=== PATIENT | male | born 1985 | race Caucasian/White ===

== ENCOUNTER 2019-12-31 23:35 | Emergency (ER) | payer SELFPAY ==
[~2019-12-31] VITALS: Ht 180.3 cm; Wt 68.0 kg
--- OUTSIDE RECORDS SUMMARY | 2019-12-31 23:37 | XMS REPORT ---
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 Unavailable Unavailable JOHNNY GUARDADO M.D. Unavailable Unavailable Problems Condition Name Condition Details Condition Category Status Onset Date Resolution Date Last Treatment Date Treating Clinician Comments History of Anxiety History of Anxiety Problem Resolved Skin plaque Skin plaque Problem Active History of Alcohol abuse History of Alcohol abuse Problem Resolved Tobacco abuse Tobacco abuse Problem Active Mixed hyperlipidemia Mixed hyperlipidemia Problem Active Elevated transaminase level Elevated transaminase level Problem Active Rash and nonspecific skin eruption Rash and nonspecific skin eru ption Problem Active Screening for STD (sexually transmitted disease) Scree jasmina for STD (sexually transmitted disease) Problem Active Erectile dysfunction Erectile dysfunction Problem Active Blood pressure elevated without history of HTN Blood p ressure elevated without history of HTN Problem Active Vaccination refused by patient Vaccination refused by patient Problem Active Allergies, Adverse Reactions, Alerts Allergy Name Allergy Type Status Severity Reaction(s) Onset Date Inacti ve Date Treating Clinician Comments sertraline propensity to adverse reactions to drug Active Sexual dysfunction Medications Ordered Medication Name Filled Medication Name Start Date Stop Da te Current Medication? Ordering Clinician Indication Dosage Frequency Signature (SIG) Comments Components Sildenafil Citrate 100 MG Oral Tablet Sildenafil Citrate 100 MG Oral Tablet 2017-12-03 00:00:00 Yes ALYSSA Paula TAKE ONE TABLET BY MOUTH ONE HOUR PRIOR TO SEXUAL ACTIVITY; DO NOT EXCEED 1 DOSE PER 24 HOURS Clobetasol Propionate 0.05 % External Ointment Clobeta devora Propionate 0.05 % External Ointment 2017-11-13 00:00:00 Yes JOHNNY GUARDADO M.D. APPLY AND GENTLY MASSAGE INTO AFFECTED AREA(S) TWICE DAILY. Avoid face, groin, armpits. [employer] $0 Co-Pay Program Triamcinolone Acetonide 0.5 % External Ointment Triamc inolone Acetonide 0.5 % External Ointment 2017-11-13 00:00:00 Yes JOHNNY GUARDADO M.D. Apply small amount twice daily to red, raised, itchy areas; avoid face, folds of groin, folds of armpits. HEB $10 Formulary. Vital Signs Vital Name Observation Time Observation Value Comments BP Systolic 2019-03-22 10:50:00 132 mm[Hg] Location: [facility]; Position: Sitting BP Diastolic 2019-03-22 10:50:00 79 mm[Hg] Location: [facility]; Position: Sitting Height 2019-03-22 10:50:00 71 [in_us] Weight 2019-03-22 10:50:00 193.3125 [lb_av] Temperature 2019-03-22 10:50:00 98.6 [degF] Method: Temp oral Heart Rate 2019-03-22 10:50:00 85 /min Respiration Rate 2019-03-22 10:50:00 16 /min BP Systolic 2017-12-03 10:09:00 129 mm[Hg] Location: [facility]; Position: Sitting BP Diastolic 2017-12-03 10:09:00 86 mm[Hg] Location: [facility]; Position: Sitting Height 2017-12-03 10:09:00 71 [in_us] Weight 2017-12-03 10:09:00 204.5 [lb_av] Temperature 2017-12-03 10:09:00 97.9 [degF] Method: Temp oral Respiration Rate 2017-12-03 10:09:00 16 /min Heart Rate 2017-12-03 10:09:00 66 /min BP Systolic 2017-11-13 14:05:00 122 mm[Hg] Location: [facility]; Position: Sitting BP Diastolic 2017-11-13 14:05:00 72 mm[Hg] Location: [facility]; Position: Sitting Height 2017-11-13 14:05:00 71 [in_us] Weight 2017-11-13 14:05:00 205 [lb_av] Heart Rate 2017-11-13 14:05:00 75 /min BP Systolic 2017-10-16 10:22:00 129 mm[Hg] Location: [facility]; Position: Sitting BP Diastolic 2017-10-16 10:22:00 81 mm[Hg] Location: [facility]; Position: Sitting Height 2017-10-16 10:22:00 71 [in_us] Weight 2017-10-16 10:22:00 204 [lb_av] Temperature 2017-10-16 10:22:00 97.8 [degF] Method: Temp oral Respiration Rate 2017-10-16 10:22:00 16 /min Heart Rate 2017-10-16 10:22:00 63 /min BP Systolic 2017-10-09 11:24:00 113 mm[Hg] Location: [facility]; Position: Sitting BP Diastolic 2017-10-09 11:24:00 67 mm[Hg] Location: [facility]; Position: Sitting Height 2017-10-09 11:24:00 71 [in_us] Weight 2017-10-09 11:24:00 202.4375 [lb_av] Temperature 2017-10-09 11:24:00 98.5 [degF] Method: Temp oral Heart Rate 2017-10-09 11:24:00 77 /min Location: R Radial; Respiration Rate 2017-10-09 11:24:00 18 /min Quality: No rmal Procedures and Interventions Procedure Date / Time Performed Performing Clinici an [QLH] CBC (INCLUDES DIFF/PLT) 2019-03-22 00:00:00 [QLH] CMP W/EGFR 2019-03-22 00:00:00 [QLH] LIPID PANEL 2019-03-22 00:00:00 [QLH] TSH, 3RD GENERATION W/REFLEX TO FT4 2019-03-22 00:00:0 0 [QLH] URINALYSIS, COMPLETE W/REFLEX TO CULTURE 2019-03-22 00 :00:00 [QH] HIV AB, HIV 1/2, EIA, WITH REFLEXES 2019-03-22 00:00:00 [QL] RPR (DX) W/REFL TITER AND CONFIRMATORY TESTING 00:00:00 [QLH] HEPATITIS PANEL 2019-03-22 00:00:00 [Q] CHLAMYDIA/N. GONORRHOEAE DNA, SDA 2019-03-22 00:00:00 [QLH] TESTOSTERONE, FREE AND TOTAL, LC/MS/MS 2017-12-03 00:0 0:00 [QH] SEX HORMONE BINDING GLOBULIN 2017-12-03 00:00:00 [QLH] PROLACTIN 2017-12-03 00:00:00 [QLH] CBC (INCLUDES DIFF/PLT) 2017-11-27 00:00:00 [QLH] CMP W/EGFR 2017-11-27 00:00:00 [QLH] JUAN JOSÉ PANEL, COMPREHENSIVE 2017-11-27 00:00:00 [Q] DNA (DS) ANTIBODY, CRITHIDIA IFA W/REFLEX TO TITER 11-27 00:00:00 [QLH] SJOGRENS ANTIBODIES (SS-A,SS-B) 2017-11-27 00:00:00 [H] Culture: Tissue Quant w/Gram Stain 2017-11-13 00:00:00 [LH] AFB Culture and Smear,Broth 2017-11-13 00:00:00 [QH] CULTURE, FUNGUS W/SMEAR NOT HAIR, SKIN, BLOOD 2017-10-29 6 00:00:00 [QLH] CBC (INCLUDES DIFF/PLT) 2017-10-09 00:00:00 [QLH] CMP W/EGFR 2017-10-09 00:00:00 [QLH] FOLATE, SERUM 2017-10-09 00:00:00 [QLH] LIPID PANEL 2017-10-09 00:00:00 [QLH] TSH, 3RD GENERATION W/REFLEX TO FT4 2017-10-09 00:00:0 0 [QLH] VITAMIN B12 2017-10-09 00:00:00 [QLH] VITAMIN B1, WHOLE BLOOD 2017-10-09 00:00:00 History of Vasectomy Encounters Start Date/Time End Date/Time [facility] ID 2019-03-22 10:45:00 2019-03-22 10:45:00 Appointment; ADELA MANCUSO P.A. SPOONER, JOSEPH, P.A. [facility] [place] [id number] 2017-12-25 14:30:00 2017-12-25 14:30:00 Appointment; ADELA MANCUSO P.A. SPOONER, JOSEPH, P.A. [facility] [id number] 2017-12-03 10:00:00 2017-12-03 10:00:00 Appointment; ADELA MANCUSO P.A. SPOONER, JOSEPH, P.A. [facility] [id number] 2017-11-27 15:15:00 2017-11-27 15:15:00 Appointment; DELVIS GUARDADO M.D. KOSHELEV, MISHA[facility] [address] [id number] 2017-11-13 13:45:00 2017-11-13 13:45:00 Appointment; DELVIS GUARDADO M.D. KOSHELEV, MISHA, M.D. [facility] [address] [id number] 2017-10-16 10:15:00 2017-10-16 10:15:00 Appointment; ADELA MANCUSO P.A. SPOONER, JOSEPH, P.A. [facility] [id number] 2017-10-09 11:30:00 2017-10-09 11:30:00 Appointment; ADELA MANCUSO P.A. SPOONER, JOSEPH, P.A. [facility] [id number] Results Test Description Test Time Test Comments Text Results Atomic Results Result Comments [Q] HIV-1/2 Antigen and Antibodies, Fourth Generation, with Reflexes 2019-03-22 11:40:00 HIV AG/AB, 4TH GEN; Normal (test code = 81867-5) NON-REACTIVE NON-REACTIVE HIV-1 antigen and HIV-1/HIV-2 antibodies were notdetected. There is no laboratory evidence of HIVinfection. PLEASE NOTE: This information has been disclosed toyou from records whose confidentiality may beprotected by state law. If your state requires suchprotection, then the state law prohibits you frommaking any further disclosure of the informationwithout the specific written consent of the personto whom it pertains, or as otherwise permitted by law.A general authorization for the release of medical orother information is NOT sufficient for this purpose. For additional information please refer t Ratiottp://education.[employer]Znaptag/faq/NAE334(This link is being provided for informational/educational purposes only.) The performance of this assay has not been clinicallyvalidated in patients less than 2 years old. [[facility]] LIPID [id number] 11:40:00* Test Item Value Reference Range Comments CHOLESTEROL, TOTAL; Normal (test code = 2093-3) 187 mg/dl <200 HDL CHOLESTEROL; Normal (test code = 2085-9) 56 mg/dl >40 TRIGLYCERIDES; Above High Threshold (test code = 2571-8) 181 mg/ dl <150 LDL-CHOLESTEROL; Above High Threshold (test code = 07068-6) 101 {MG/DL SHARMILA} Reference range: <100 Desirable range <100 mg/dL for primary prevention; <70 mg/dL for patients with CHD or diabetic patients with > or = 2 CHD risk factors. LDL-C is now calculated using the Leonides-Gary calculation, which is a validated novel method providing better accuracy than the Friedewald equation in the estimation of LDL-C. Leonides SS et al. BHARATI. 2013;310(19): 4446-7331 (http ://[employer] [place]/faq/DXV317) CHOL/HDLC RATIO (test code = CHOL/HDLC RATIO) 3.3 {CALC} <5 .0 NON HDL CHOLESTEROL (test code = NON HDL CHOLESTEROL) 131 {MG/DL SHARMILA} <130 For patients with diabetes plus 1 major ASCVD risk factor, treating to a non-HDL-C goal of <100 mg/dL (LDL-C of <70 mg/dL) is considered a therapeutic option. [[facility]] HEPATITIS [id number] 11:40:00* Test Item Value Reference Range Comments HEPATITIS A AB, TOTAL; Normal (test code = 89739-2) NON-REACTIVE NON-REACTIVE HEPATITIS B SURFACE ANTIBODY QL; Normal (test code = 29212-5 ) NON-REACTIVE NON-REACTIVE HEPATITIS B SURFACE ANTIGEN; Normal (test code = 5195-3) NON -REACTIVE NON-REACTIVE HEPATITIS B CORE AB TOTAL; Normal (test code = 93229-5) NON- REACTIVE NON-REACTIVE HEPATITIS C ANTIBODY; Normal (test code = 33074-7) NON-REACTIVE NON-REACTIVE SIGNAL TO CUT-OFF (test code = SIGNAL TO CUT-OFF) 0.01 <1.00 HCV antibody was non-reactive. There is no laboratory evidence of HCV infection. In most cases, no further action is required. However,if recent HCV exposure is suspected, a test for HCV RNA(test code 48681) is suggested. For additional information please refer tohttp://education.[employer]/faq/RNF34g6(This link is being provided for informational/educational purposes only.) [QL] CMP [id number] 11:40:00* Test Item Value Reference Range Comments GLUCOSE; Normal (test code = 1547-9) 97 mg/dl 65-99 Fasting reference interval UREA NITROGEN (BUN) (test code = UREA NITROGEN (BUN)) 14 mg/dl 7-25 CREATININE (test code = CREATININE) 1.04 mg/dl 0.60-1.35 eGFR NON- (test code = eGFR NON-SILVIO N PALESTINIAN) 93 {ML/MIN/1.7} > OR = 60 eGFR (test code = eGFR ) 10 7 {ML/MIN/1.7} > OR = 60 BUN/CREATININE RATIO (test code = BUN/CREATININE RATIO) NOT APPL ICABLE 6-22 SODIUM (test code = SODIUM) 137 mmol/L 135-146 POTASSIUM (test code = POTASSIUM) 4.1 mmol/L 3.5-5.3 CHLORIDE (test code = CHLORIDE) 101 mmol/L 98-110 CARBON DIOXIDE (test code = CARBON DIOXIDE) 27 mmol/L 20-3 2 CALCIUM (test code = CALCIUM) 9.4 mg/dl 8.6-10.3 PROTEIN, TOTAL (test code = PROTEIN, TOTAL) 6.9 g/dl 6.1- 8.1 ALBUMIN (test code = ALBUMIN) 4.5 g/dl 3.6-5.1 GLOBULIN (test code = GLOBULIN) 2.4 {G/DL CALC} 1.9-3.7 ALBUMIN/GLOBULIN RATIO (test code = ALBUMIN/GLOBULIN RATIO) 1.9 {CALC} 1.0-2.5 BILIRUBIN, TOTAL; Normal (test code = 76145-9) 0.7 mg/dl 0 .2-1.2 ALKALINE PHSPHATASE (test code = ALKALINE PHSPHATASE) 73 u/l 40-115 AST; Normal (test code = 1916-6) 32 u/l 10-40 ALT; Normal (test code = 1742-6) 32 u/l 9-46 [[facility]] URINALYSIS, COMPLETE W/REFLEX TO [id number] 11:40:00* Test Item Value Reference Range Comments COLOR; Normal (test code = 5778-6) YELLOW YELLOW APPEARANCE (test code = APPEARANCE) CLEAR CLEAR SPECIFIC GRAVITY; Normal (test code = 2965-2) 1.021 1. 001-1.035 PH; Normal (test code = 2756-5) 7.0 5.0-8.0 GLUCOSE; Normal (test code = 1547-9) NEGATIVE NEGATIVE BILIRUBIN; Normal (test code = 81367-3) NEGATIVE NEGATIVE KETONES; Normal (test code = 15878-2) NEGATIVE NEGATIVE OCCULT BLOOD; Normal (test code = 72218-9) NEGATIVE NEGAT JESS PROTEIN; Normal (test code = 99516-7) NEGATIVE NEGATIVE NITRITE (test code = NITRITE) NEGATIVE NEGATIVE LEUKOCYTE ESTERASE (test code = LEUKOCYTE ESTERASE) NEGATIVE NEGATIVE WBC; Normal (test code = 6690-2) NONE SEEN < OR = 5 RBC; Normal (test code = 789-8) NONE SEEN < OR = 2 SQUAMOUS EPITHELIAL CELLS; Normal (test code = 67226-6) NONE SEE N < OR = 5 BACTERIA; Normal (test code = 630-4) NONE SEEN NONE SEEN HYALINE CAST; Normal (test code = 28529-3) NONE SEEN NONE SEEN [Q] REFLEXIVE URINE [id number] 11:40:00* Test Item Value Reference Range Comments REFLEXIVE URINE CULTURE (test code = REFLEXIVE URINE C ULTURE) NO CULTURE INDICATED [QLH] CBC (INCLUDES DIFF/PLT)2019-03-22 11:40:00* Test Item Value Reference Range Comments WHITE BLOOD CELL COUNT (test code = WHITE BLOOD CELL COUNT) 7.0 {Thousand/u} 3.8-10.8 RED BLOOD CELL COUNT (test code = RED BLOOD CELL COUNT) 4.94 {Million/uL} 4.20-5.80 HEMAGLOBIN; Normal (test code = 60238-5) 15.9 g/dl 13.2-17 .1 HEMATOCRIT; Normal (test code = 4544-3) 46.4 % 38.5-50. 0 MCV; Normal (test code = 787-2) 93.9 fL 80.0-100.0 MCHC; Normal (test code = 96816-6) 34.3 g/dl 32.0-36.0 RDW; Normal (test code = 788-0) 12.1 % 11.0-15.0 PLATELET COUNT; Normal (test code = 777-3) 205 {Thousand/u} 140- 400 MPV; Normal (test code = 34647-5) 10.3 fL 7.5-12.5 ABSOLUTE NEUTROPHILS (test code = ABSOLUTE NEUTROPHILS) 4921 {cells/uL} 6125-7700 ABSOLUTE LYMPHOCYTES (test code = ABSOLUTE LYMPHOCYTES) 1477 {cells/uL} 850-3900 ABSOLUTE MONOCYTES (test code = ABSOLUTE MONOCYTES) 511 {cells/u L} 200-950 ABSOLUTE EOSINOPHILS (test code = ABSOLUTE EOSINOPHILS) 49 {cell s/uL} 15-500 ABSOLUTE BASOPHILS (test code = ABSOLUTE BASOPHILS) 42 {cells/uL } 0-200 NEUTROPHILS (test code = NEUTROPHILS) 70.3 % LYMPHOCYTES (test code = LYMPHOCYTES) 21.1 % MONOCYTES; Normal (test code = 96185-5) 7.3 % EOSINOPHILS; Normal (test code = 10772-0) 0.7 % BASOPHILS; Normal (test code = 45058-2) 0.6 % [QLH] TSH, 3RD GENERATION W/REFLEX TO [id number] 11:40:00* Test Item Value Reference Range Comments TSH, 3RD GENERATION W/REFLEX TO FT4 (kristi t code = TSH, 3RD GENERATION W/REFLEX TO FT4) 1.80 {MIU/L} 0.40-4.50 [Q] CHLAMYDIA/N. GONORRHOEAE RNA, [id number] 11:40:00* Test Item Value Reference Range Comments CHLAMYDIAN TRACHOMATIS RNA, TMA UROGENITAL; Normal (te st code = 38015-9) NOT DETECTED NOT DETECTED NEISSERIA GONORRHOEAE RNA, TMA UROGENITAL; Normal (kristi t code = 85561-3) NOT DETECTED NOT DETECTED [QL] RPR (DX) W/REFL TITER AND CONFIRMATORY [id number] 11:40:00* Test Item Value Reference Range Comments RPR (DX) W/REFL TITER AND CONFIRMATORY T ESTING (test code = RPR (DX) W/REFL TITER AND CONFIRMATORY TESTING) NON-REACTIVE NON-REACTIVE [QLH] CMP [id number] 11:03:00* Test Item Value Reference Range Comments GLUCOSE; Normal (test code = 1547-9) 96 mg/dl 65-99 Fasting reference interval UREA NITROGEN (BUN) (test code = UREA NITROGEN (BUN)) 17 mg/dl 7-25 CREATININE (test code = CREATININE) 1.04 mg/dl 0.60-1.35 eGFR NON- (test code = eGFR NON-SILVIO N PALESTINIAN) 93 {ML/MIN/1.7} > OR = 60 eGFR (test code = eGFR ) 10 8 {ML/MIN/1.7} > OR = 60 BUN/CREATININE RATIO (test code = BUN/CREATININE RATIO) NOT APPL ICABLE 6-22 SODIUM (test code = SODIUM) 138 mmol/L 135-146 POTASSIUM (test code = POTASSIUM) 4.2 mmol/L 3.5-5.3 CHLORIDE (test code = CHLORIDE) 105 mmol/L 98-110 CARBON DIOXIDE (test code = CARBON DIOXIDE) 29 mmol/L 20-3 1 CALCIUM (test code = CALCIUM) 9.0 mg/dl 8.6-10.3 PROTEIN, TOTAL (test code = PROTEIN, TOTAL) 6.6 g/dl 6.1- 8.1 ALBUMIN (test code = ALBUMIN) 4.2 g/dl 3.6-5.1 GLOBULIN (test code = GLOBULIN) 2.4 {G/DL CALC} 1.9-3.7 ALBUMIN/GLOBULIN RATIO (test code = ALBUMIN/GLOBULIN RATIO) 1.8 {CALC} 1.0-2.5 BILIRUBIN, TOTAL; Normal (test code = 44644-5) 0.5 mg/dl 0 .2-1.2 ALKALINE PHSPHATASE (test code = ALKALINE PHSPHATASE) 130 u/l 40-115 AST; Normal (test code = 1916-6) 38 u/l 10-40 ALT; Above High Threshold (test code = 1742-6) 78 u/l 9 -46 [[facility]] CBC (INCLUDES DIFF/PLT)2017-12-03 11:03:00* Test Item Value Reference Range Comments WHITE BLOOD CELL COUNT (test code = WHITE BLOOD CELL COUNT) 4.4 {Thousand/u} 3.8-10.8 RED BLOOD CELL COUNT (test code = RED BLOOD CELL COUNT) 4.79 {Million/uL} 4.20-5.80 HEMOGLOBIN; Normal (test code = 15205-9) 14.6 g/dl 13.2-17 .1 HEMATOCRIT; Normal (test code = 4544-3) 43.0 % 38.5-50. 0 MCV; Normal (test code = 787-2) 89.8 fL 80.0-100.0 MCHC; Normal (test code = 16871-0) 34.0 g/dl 32.0-36.0 RDW; Normal (test code = 788-0) 11.4 % 11.0-15.0 PLATELET COUNT; Normal (test code = 777-3) 208 {Thousand/u} 140- 400 MPV; Normal (test code = 97457-5) 10.1 fL 7.5-12.5 ABSOLUTE NEUTROPHILS (test code = ABSOLUTE NEUTROPHILS) 2732 {cells/uL} 7649-2822 ABSOLUTE LYMPHOCYTES (test code = ABSOLUTE LYMPHOCYTES) 1285 {cells/uL} 850-3900 ABSOLUTE MONOCYTES (test code = ABSOLUTE MONOCYTES) 304 {cells/u L} 200-950 ABSOLUTE EOSINOPHILS (test code = ABSOLUTE EOSINOPHILS) 48 {cell s/uL} 15-500 ABSOLUTE BASOPHILS (test code = ABSOLUTE BASOPHILS) 31 {cells/uL } 0-200 NEUTROPHILS (test code = NEUTROPHILS) 62.1 % LYMPHOCYTES (test code = LYMPHOCYTES) 29.2 % MONOCYTES; Normal (test code = 73680-6) 6.9 % EOSINOPHILS; Normal (test code = 97783-1) 1.1 % BASOPHILS; Normal (test code = 96358-6) 0.7 % [Q] DNA (DS) ANTIBODY, CRITHIDIA IFA W/REFLEX TO [id number] 11:03:00* Test Item Value Reference Range Comments DNA AB (DS) CRITHIDIA,IFA (test code = DNA AB (DS) CRITHIDIA ,IFA) NEGATIVE NEGATIVE [[facility]] JUAN JOSÉ PANEL, [id number] 11:03:00* Test Item Value Reference Range Comments JUAN JOSÉ SCREEN, IFA (test code = JUAN JOSÉ SCREEN, IFA) NEGATIVE NE GATIVE JUAN JOSÉ IFA is a first line screen for detecting thepresence of up to approximately 150 autoantibodies invarious autoimmune diseases. A negative JUAN JOSÉ IFA resultsuggests JUAN JOSÉ-associated autoimmune diseases are notpresent at this time. Visit Physician FAQs for interpretation of allantibodies in the [place], prevalence, and associationwith diseases at http://education.[employer]/faq/RCM972 DNA (DS) ANTIBODY (test code = DNA (DS) ANTIBODY) 1 {IU/ml} IU/mL Interpretation < or = 4 Negative 5-9 Indeterminate > or = 10 Positive SCL-70 ANTIBODY (test code = SCL-70 ANTIBODY) <1.0 NEG <1 .0 NEG SM ANTIBODY (test code = SM ANTIBODY) <1.0 NEG <1.0 NEG SM/LEARNING DISABLED TEACHER ANTIBODY (test code = SM/LEARNING DISABLED TEACHER ANTIBODY) <1.0 NEG <1 .0 NEG SJOGREN''S ANTIBODY (SS-A) (test code = SJOGREN''S ANTIBODY (SS-A)) <1.0 NEG <1.0 NEG SJOGREN''S ANTIBODY (SS-B) (test code = SJOGREN''S ANTIBODY (SS-B)) <1.0 NEG <1.0 NEG [QLH] [id number] 11:00:00* Test Item Value Reference Range Comments PROLACTIN (test code = PROLACTIN) 7.3 ng/ml 2.0-18.0 [QH] SEX HORMONE BINDING [id number] 11:00:00* Test Item Value Reference Range Comments SEX HORMONE BINDING GLOBULIN (test code = SEX HORMONE BINDING GLOBULIN) 26 nmol/L 10-50 [QLH] TESTOSTERONE, FREE AND TOTAL, [id number] 11:00:00* Test Item Value Reference Range Comments TESTOSTERONE, TOTAL, LC/MS/MS (test code = TESTOSTERON E, TOTAL, LC/MS/MS) 524 ng/dl 250-1100 FREE TESTOSTERONE (test code = FREE TESTOSTERONE) 85.4 pg/ml 35.0-155.0 This test was developed and its analytical performance characteristics have been determined by [facility]. It has not been cleared or approved by the USFood and Drug Administration. This assay has been validated pursuant to the CLIA regulations and is used for clinical purposes. [H] Culture: Tissue Quant w/Gram [id number] 15:25:01* Test Item Value Reference Range Comments Culture: Tissue Quant w/Gram Stain (test code = Culture: Tissue Quant w/Gram Stain) Cancel Reason: Modified Order [H] Culture: Body Fluid/Tissue w/Gram [id number] 15:25:01* Test Item Value Reference Range Comments Gram St-[id number] (test code = Gram St-8419791H) No Wbc'S Or Orga nisms Seen FINAL REPORT (test code = FINAL REPORT) Growth In Subc ulture Broth Only Lactobacillus Species [QH] CULTURE, FUNGUS W/SMEAR NOT HAIR, SKIN, [id number] 15:25:01* Test Item Value Reference Range Comments Fungal Smear (test code = Fungal Smear) No Yeast Or Fungal Eleme nts Seen FINAL REPORT (test code = FINAL REPORT) No Fungus Isolated After 4 Weeks [] AFB Culture and Smear,[id number] 15:25:01* Test Item Value Reference Range Comments FINAL REPORT (test code = FINAL REPORT) No AFB Isolated At 8 Wee ks [place] Pathology [id number] 00:00:00* Test Item Value Reference Range Comments REPORT (test code = REPORT) See Comment [QL] LIPID [id number] 11:58:00* Test Item Value Reference Range Comments CHOLESTEROL, TOTAL; Normal (test code = 2093-3) 165 mg/dl <200 HDL CHOLESTEROL; Below Low Threshold (test code = 2085-9) 40 mg/ dl >40 TRIGLYCERIDES; Normal (test code = 2571-8) 81 mg/dl <150 LDL-CHOLESTEROL; Above High Threshold (test code = 77149-9) 108 {MG/DL SHARMLIA} Reference range: <100 Desirable range <100 mg/dL for patients with CHD ordiabetes and <70 mg/dL for diabetic patients withknown heart disease. LDL-C is now calculated using the Leonides-Gary calculation, which is a validated novel method providing better accuracy than the Friedewald equation in the estimation of LDL-C. Leonides SS et al. BHARATI. 2013;310(19): 2708-9423 (http://education.[employer]aptag/faq/SNP249) CHOL/HDLC RATIO (test code = CHOL/HDLC RATIO) 4.1 {CALC} <5 .0 NON HDL CHOLESTEROL (test code = NON HDL CHOLESTEROL) 125 {MG/DL SHARMILA} <130 For patients with diabetes plus 1 major ASCVD risk factor, treating to a non-HDL-C goal of <100 mg/dL (LDL-C of <70 mg/dL) is considered a therapeutic option. [QL] CMP [id number] 11:58:00* Test Item Value Reference Range Comments GLUCOSE; Normal (test code = 1547-9) 96 mg/dl 65-99 Fasting reference interval UREA NITROGEN (BUN) (test code = UREA NITROGEN (BUN)) 11 mg/dl 7-25 CREATININE (test code = CREATININE) 0.94 mg/dl 0.60-1.35 eGFR NON- (test code = eGFR NON-SILVIO N PALESTINIAN) 105 {ML/MIN/1.7} > OR = 60 eGFR (test code = eGFR ) 12 2 {ML/MIN/1.7} > OR = 60 BUN/CREATININE RATIO (test code = BUN/CREATININE RATIO) NOT APPL ICABLE 6-22 SODIUM (test code = SODIUM) 141 mmol/L 135-146 POTASSIUM (test code = POTASSIUM) 4.0 mmol/L 3.5-5.3 CHLORIDE (test code = CHLORIDE) 105 mmol/L 98-110 CARBON DIOXIDE (test code = CARBON DIOXIDE) 30 mmol/L 20-3 1 CALCIUM (test code = CALCIUM) 9.4 mg/dl 8.6-10.3 PROTEIN, TOTAL (test code = PROTEIN, TOTAL) 6.8 g/dl 6.1- 8.1 ALBUMIN (test code = ALBUMIN) 4.3 g/dl 3.6-5.1 GLOBULIN (test code = GLOBULIN) 2.5 {G/DL CALC} 1.9-3.7 ALBUMIN/GLOBULIN RATIO (test code = ALBUMIN/GLOBULIN RATIO) 1.7 {CALC} 1.0-2.5 BILIRUBIN, TOTAL; Normal (test code = 74505-6) 0.7 mg/dl 0 .2-1.2 ALKALINE PHSPHATASE (test code = ALKALINE PHSPHATASE) 90 u/l 40-115 AST; Normal (test code = 1916-6) 24 u/l 10-40 ALT; Above High Threshold (test code = 1742-6) 49 u/l 9 -46 [[facility]] CBC (INCLUDES DIFF/PLT)2017-10-10 11:58:00* Test Item Value Reference Range Comments WHITE BLOOD CELL COUNT (test code = WHITE BLOOD CELL COUNT) 5.6 {Thousand/u} 3.8-10.8 RED BLOOD CELL COUNT (test code = RED BLOOD CELL COUNT) 4.70 {Million/uL} 4.20-5.80 HEMOGLOBIN; Normal (test code = 38035-3) 14.6 g/dl 13.2-17 .1 HEMATOCRIT; Normal (test code = 4544-3) 42.8 % 38.5-50. 0 MCV; Normal (test code = 787-2) 91.1 fL 80.0-100.0 MCHC; Normal (test code = 17585-5) 34.1 g/dl 32.0-36.0 RDW; Normal (test code = 788-0) 12.0 % 11.0-15.0 PLATELET COUNT; Normal (test code = 777-3) 213 {Thousand/u} 140- 400 MPV; Normal (test code = 62152-6) 9.9 fL 7.5-12.5 ABSOLUTE NEUTROPHILS (test code = ABSOLUTE NEUTROPHILS) 3517 {cells/uL} 5706-4389 ABSOLUTE LYMPHOCYTES (test code = ABSOLUTE LYMPHOCYTES) 1663 {cells/uL} 850-3900 ABSOLUTE MONOCYTES (test code = ABSOLUTE MONOCYTES) 342 {cells/u L} 200-950 ABSOLUTE EOSINOPHILS (test code = ABSOLUTE EOSINOPHILS) 50 {cell s/uL} 15-500 ABSOLUTE BASOPHILS (test code = ABSOLUTE BASOPHILS) 28 {cells/uL } 0-200 NEUTROPHILS (test code = NEUTROPHILS) 62.8 % LYMPHOCYTES (test code = LYMPHOCYTES) 29.7 % MONOCYTES; Normal (test code = 19144-5) 6.1 % EOSINOPHILS; Normal (test code = 74529-2) 0.9 % BASOPHILS; Normal (test code = 74751-6) 0.5 % [QLH] FOLATE, [id number] 11:58:00* Test Item Value Reference Range Comments FOLATE, SERUM (test code = FOLATE, SERUM) 9.8 ng/ml Reference Range Low: <3.4 Borderline: 3.4-5.4 Normal: >5.4 [QLH] VITAMIN [id number] 11:58:00* Test Item Value Reference Range Comments VITAMIN B12 (test code = VITAMIN B12) 588 pg/ml 200-1100 [QLH] TSH, 3RD GENERATION W/REFLEX TO [id number] 11:58:00* Test Item Value Reference Range Comments TSH, 3RD GENERATION W/REFLEX TO FT4 (kristi t code = TSH, 3RD GENERATION W/REFLEX TO FT4) 1.51 {MIU/L} 0.40-4.50 [QLH] VITAMIN B1, WHOLE [id number] 11:58:00* Test Item Value Reference Range Comments VITAMIN B1, WHOLE BLOOD (test code = VITAMIN B1, WHOLE BLOOD) 12 9 nmol/L 78-185 Vitamin supplementation within 24 hours prior to blood draw may affect the accuracy of results. This test was developed and its analytical performance characteristics have been determined by [employer] Lauren Gilliam. It has not been cleared or approved by FDA. This assay has been validated pursuant to the CLIA regulations and is used for clinical purposes. Tobacco Use [id number] 17:30:00* Test Item Value Reference Range Comments Completed (test code = Completed) DONE"
--- OUTSIDE RECORDS SUMMARY | 2019-12-31 23:37 | XMS REPORT | Summary of Care ---
Author Author ACACIA JACOB Organization Unknown Address Unknown Phone Unavailable Care Team Providers Care Cotton Tier Name Role Phone Susan Cordero M.A. Unavailable Unavailable ALYSSA JACOB Unavailable Unavailable JOHNNY GUARDADO M.D. Unavailable Unavailable JAMEEALYSSA JUÁREZ Unavailable Unavailab bibi BANSAL MD, CHRISTOPHER Smith Unavailable Unavailable Unavailable Unavailable Functional Status Name Dates Details Functional status health issues are not documented Status: Name Dates Details Cognitive status health issues are not d ocumented Status: Problems Name Dates Details Skin plaque (709.8, L98.8) Status: Active Encounter to establish care (V65.8, Z76. 89) Status: Active Rash and nonspecific skin eruption (782. 1, R21) Status: Active Tobacco abuse (305.1, Z72.0) Status: Active Elevated transaminase level (790.4, R74. 0) Status: Active History of Alcohol abuse (305.00, F10.10 ) Status: Resolved Mixed hyperlipidemia (272.2, E78.2) Status: Active Blood pressure elevated without history of HTN (796.2, R03.0) Status: Active Screening for STD (sexually transmitted disease) (V74.5, Z11.3) Status: Active Erectile dysfunction (607.84, N52.9) Status: Active Vaccination refused by patient (V64.06, Z28.21) Status: Active Medications Name Dates Details Clobetasol Propionate 0.05 % External Oi ntment APPLY AND GENTLY MASSAGE INTO AFFECTED AREA(S) TWICE DAILY. Avoid face, groin, armpits. [employer] $0 Co-Pay Program Quantity: 60 GEO Rivero, JOHNNY * Start : 13-Nov-2017 Active Triamcinolone Acetonide 0.5 % External Ointment Apply small amount twice daily to red, raised, itchy areas; avoid face, folds of groin, folds of armpits. [facility] $10 Formulary. * Quantity: 45 Refills: 4 JOHNNY GUARDADO M.D. * Start : 13-Nov-2017 Active Sildenafil Citrate 100 MG Oral Tablet TAKE ONE TABLET BY MOUTH ONE HOUR PRIOR TO SEXUAL ACTIVITY; DO NOT EXCEED 1 DOSE PER 24 HOURS * Quantity: 30 Refills: 5 JAMEE Paula ALYSSA * Start : 03-Dec-2017 Active Allergies and Adverse Reactions Name Dates Details sertraline (Adverse Event) Reaction: Sex ual dysfunction Status: Active Past Medical History Name Dates Details History of Anxiety (300.00, F41.9) Status: Resolved Procedures Procedure Dates Details [QH] HIV AB, HIV 1/2, EIA, WITH REFLEXES Date: 22-Mar-2019 [Q] CHLAMYDIA/N. GONORRHOEAE DNA, SDA Date: 22-Mar-2019 History of Vasectomy Completed Immunization Name Dates Details Immunizations not documented Social History Name Dates Details - Status: Name Dates Details Current every day smoker Vital Signs Date Test Result Details [id number] Physical Findings 2 Status: Comments: PH Q-9 Adult Depression Screening 30-Upv-585083:50 BP Systolic 132 mm[Hg] Status: Comments: Lo cation: LUE; Position: Sitting BP Diastolic 79 mm[Hg] Status: Comments: Lo cation: LUE; Position: Sitting Height 71 in Status: Weight 193.3125 lb Status: Body Mass Index Calculated 26.96 kg/m2 Status: Body Surface Area Calculated 2.08 m2 Status: Temperature 98.6 f Status: Comments: Me thod: Temporal Heart Rate 85 /min Status: Respiration Rate 16 /min Status: Physical Findings 0 Status: Comments: Al cohol Screen - How many times in the past yr have you had 5 (for M) or 4 (for F) or 4 (for all > 65yrs) or more drinks in a day? Results Date Description Value Details [id number]-872263:40 [Q] HIV-1/2 Antigen and Anti bodies, Fourth Generation, with Reflexes HIV AG/AB, 4TH GEN NON-REACTIVE (Normal) Range : NON-REACTIVE Comments: HIV-1 antigen and HIV-1/HIV-2 antibodies were notdetected. [...] purpose. For additional information please refer t [email or web address](This link is being provided for informational/educational purposes only.) The performance of this assay has not been clinicallyvalidated in patients less than 2 years old. :40 [[facility]] LIPID PANEL CHOLESTEROL, TOTAL 187 mg/dl (Normal) Range: <2 00 HDL CHOLESTEROL 56 mg/dl (Normal) Range: >40 TRIGLYCERIDES 181 mg/dl (Above high threshold ) Range: <150 LDL-CHOLESTEROL 101 {MG/DL__CAL} (Above high th reshold) Comments: Reference range: <100 Desirable range <100 mg/dL for primary prevention; <70 mg/dL for patients with CHD or diabetic patients with > or = 2 CHD risk factors. LDL-C is now calculated using the Leonides-Gary calculation, which is a validated novel method providing better accuracy than the Friedewald equation in the estimation of LDL-C. Leonides HARP et al. BHARATI. 2013;310(19): 4953-8427 (http ://education.Crowdery.Paga/faq/SEU676) CHOL/HDLC RATIO 3.3 {CALC} (Normal) Range: <5.0 NON HDL CHOLESTEROL 131 {MG/DL__CAL} (Above hig h threshold) Range: <130 Comments: For patients with diabetes plus 1 major ASCVD risk factor, treating to a non-HDL-C goal of <100 mg/dL (LDL-C of <70 mg/dL) is considered a therapeutic option. :40 [[facility]] HEPATITIS PANEL HEPATITIS A AB, TOTAL NON-REACTIVE (Normal) Ra nge: NON-REACTIVE HEPATITIS B SURFACE ANTIBODY QL NON-REACTIVE ( Normal) Range: NON-REACTIVE HEPATITIS B SURFACE ANTIGEN NON-REACTIVE (Norm al) Range: NON-REACTIVE HEPATITIS B CORE AB TOTAL NON-REACTIVE (Normal ) Range: NON-REACTIVE HEPATITIS C ANTIBODY NON-REACTIVE (Normal) Ran ge: NON-REACTIVE SIGNAL TO CUT-OFF 0.01 (Normal) Range: <1.00 Comments: HCV antibody was non-reactive. There is no laboratory evidence of HCV infection. In most cases, no further action is required. However,if recent HCV exposure is suspected, a test for HCV RNA(test code 55880) is suggested. For additional information please refer [email or web address]/[email or web address](This link is being provided for informational/educational purposes only.) [id number] [QL] CMP W/EGFR GLUCOSE 97 mg/dl (Normal) Range: 65-99 Comments: Fasting reference interval UREA NITROGEN (BUN) 14 mg/dl (Normal) Range: 7- 25 CREATININE 1.04 mg/dl (Normal) Range: 0.60 -1.35 eGFR NON- 93 {ML/MIN/1.7} (Norm al) Range: > OR = 60 eGFR 107 {ML/MIN/1.7} (Normal) Range: > OR = 60 BUN/CREATININE RATIO NOT APPLICABLE {CALC} Rang e: 6-22 SODIUM 137 mmol/L (Normal) Range: 135- 146 POTASSIUM 4.1 mmol/L (Normal) Range: 3.5- 5.3 CHLORIDE 101 mmol/L (Normal) Range: 98-1 10 CARBON DIOXIDE 27 mmol/L (Normal) Range: 20-32 CALCIUM 9.4 mg/dl (Normal) Range: 8.6-1 0.3 PROTEIN, TOTAL 6.9 g/dl (Normal) Range: 6.1-8. 1 ALBUMIN 4.5 g/dl (Normal) Range: 3.6-5. 1 GLOBULIN 2.4 {G/DL__CALC} (Normal) Range : 1.9-3.7 ALBUMIN/GLOBULIN RATIO 1.9 {CALC} (Normal) Rang e: 1.0-2.5 BILIRUBIN, TOTAL 0.7 mg/dl (Normal) Range: 0.2- 1.2 ALKALINE PHSPHATASE 73 u/l (Normal) Range: 40-1 15 AST 32 u/l (Normal) Range: 10-40 ALT 32 u/l (Normal) Range: 9-46 81-[id number] [QL] URINALYSIS, COMPLETE W/REFLEX TO C ULTURE COLOR YELLOW (Normal) Range: YELLOW APPEARANCE CLEAR (Normal) Range: CLEAR SPECIFIC GRAVITY 1.021 (Normal) Range: 1.001-1 .035 PH 7.0 (Normal) Range: 5.0-8.0 GLUCOSE NEGATIVE (Normal) Range: NEGAT JESS BILIRUBIN NEGATIVE (Normal) Range: NEGAT JESS KETONES NEGATIVE (Normal) Range: NEGAT JESS OCCULT BLOOD NEGATIVE (Normal) Range: NEGAT JESS PROTEIN NEGATIVE (Normal) Range: NEGAT JESS NITRITE NEGATIVE (Normal) Range: NEGAT JESS LEUKOCYTE ESTERASE NEGATIVE (Normal) Range: NE GATIVE WBC NONE SEEN {/HPF} (Normal) Range : < OR = 5 RBC NONE SEEN {/HPF} (Normal) Range : < OR = 2 SQUAMOUS EPITHELIAL CELLS NONE SEEN {/HPF} (Nor mal) Range: < OR = 5 BACTERIA NONE SEEN {/HPF} (Normal) Range : NONE SEEN HYALINE CAST NONE SEEN {/LPF} (Normal) Range : NONE SEEN [id number] [Q] REFLEXIVE URINE CULTURE REFLEXIVE URINE CULTURE NO CULTURE INDIC ATED [id number] [QLH] CBC (INCLUDES DIFF/PLT) WHITE BLOOD CELL COUNT 7.0 {Thousand/u} (Normal ) Range: 3.8-10.8 RED BLOOD CELL COUNT 4.94 {Million/uL} (Normal) Range: 4.20-5.80 HEMAGLOBIN 15.9 g/dl (Normal) Range: 13.2- 17.1 HEMATOCRIT 46.4 % (Normal) Range: 38.5-50. 0 MCV 93.9 fL (Normal) Range: 80.0-10 0.0 MCH 32.2 pg (Normal) Range: 27.0-33 .0 MCHC 34.3 g/dl (Normal) Range: 32.0- 36.0 RDW 12.1 % (Normal) Range: 11.0-15. 0 PLATELET COUNT 205 {Thousand/u} (Normal) Range : 140-400 MPV 10.3 fL (Normal) Range: 7.5-12. 5 ABSOLUTE NEUTROPHILS 4921 {cells/uL} (Normal) R meryl: 2769-3585 ABSOLUTE LYMPHOCYTES 1477 {cells/uL} (Normal) R meryl: 850-3900 ABSOLUTE MONOCYTES 511 {cells/uL} (Normal) Rang e: 200-950 ABSOLUTE EOSINOPHILS 49 {cells/uL} (Normal) Ran ge: 15-500 ABSOLUTE BASOPHILS 42 {cells/uL} (Normal) Range : 0-200 NEUTROPHILS 70.3 % (Normal) LYMPHOCYTES 21.1 % (Normal) MONOCYTES 7.3 % (Normal) EOSINOPHILS 0.7 % (Normal) BASOPHILS 0.6 % (Normal) [id number] [QLH] TSH, 3RD GENERATION W/REFLEX TO FT 4 TSH, 3RD GENERATION W/REFLEX TO FT4 1.80 {MIU/L } (Normal) Range: 0.40-4.50 [id number]:40 [Q] CHLAMYDIA/N. GONORRHOEAE RNA, TMA CHLAMYDIAN TRACHOMATIS RNA, TMA UROGENITAL NOT D ETECTED (Normal) Range: NOT DETECTED NEISSERIA GONORRHOEAE RNA, TMA UROGENITAL NOT DE TECTED (Normal) Range: NOT DETECTED .. Comments: This t est was performed using the APTIMA COMBO2 Assay([employer] The analytical performance characteristics of this assay, when used to test [employer] specimens havebeen determined by [employer]. [id number] [QL] RPR (DX) W/REFL TITER AND CONFIRMAT ORY TESTING RPR (DX) W/REFL TITER AND CONFIRMATORY TESTING N ON-REACTIVE (Normal) Range: NON-REACTIVE Plan of Care Name Dates Details Planned Observations Planned Goals not documented Interventions Provided Medication Changes* Sildenafil Citrate 100 MG Oral Tablet - Renew Instructions Name Dates Details Instructions not documented Encounters Appointment; ALYSSA MANCUSO P.A. Encounter Diagnosis: Problem not documented On: 09-Oct-2017 11:30 Appointment; ALYSSA MANCUSO P.A. Encounter Diagnosis: Problem not documented On: 16-Oct-2017 10:15 Appointment; JOHNNY GUARDADO M.D. Encounter Diagnosis: Problem not documented On: 13-Nov-2017 13:45 Appointment; ALYSSA MANCUSO P.A. Encounter Diagnosis: Problem not documented On: 03-Dec-2017 10:00 Appointment; ALYSSA MANCUSO P.A. Encounter Diagnosis: Problem not documented On: 25-Dec-2017 14:30 Appointment; ALYSSA MANCUSO P.A. Encounter Diagnosis: Problem not documented On: 22-Mar-2019 10:45
[2019-12-31] MEDS ORDERED: ASPIRIN 81 MG CHEW TAB PO ONE (23:45)
[2019-12-31] MEDS ORDERED: SODIUM CHLORIDE 0.9% 1000ML 1,000 ML IV STA (23:49)
[2020-01-01 00:03] LABS: BASOPHILS # (AUTO) 0.1 (0.0-0.1); BASOPHILS % 0.4 % (0.0-1.0); EOSINOPHILS # (AUTO) 0.9 (0.0-0.4); EOSINOPHILS % 5.4 % (0.0-6.0); HEMATOCRIT 47.1 % (38.2-49.6); HEMOGLOBIN 15.8 g/dL (14.0-18.0); LYMPHOCYTES # (AUTO) 2.2 (1.0-3.2); LYMPHOCYTES % 13.6 % (18.0-39.1); MEAN CORPUSCULAR HEMOGLOBIN 31.5 pg (28-32); MEAN CORPUSCULAR HGB CONC 33.5 g/dL (31-35); MONOCYTES # (AUTO) 0.8 (0.2-0.8); MONOCYTES % 5.1 % (4.4-11.3); NEUTROPHILS # (AUTO) 11.9 (2.1-6.9); NEUTROPHILS % 75.1 % (38.7-80.0); PLATELET COUNT 295 x10e3/uL (140-360); RED BLOOD COUNT 5.01 x10e6/uL (4.3-5.7); RED CELL DISTRIBUTION WIDTH 13.6 % (11.7-14.4)
[2020-01-01 00:22] LABS: ALANINE AMINOTRANSFERASE 51 IU/L (0-55); ALBUMIN 3.6 g/dL (3.5-5.0); ALBUMIN/GLOBULIN RATIO 1.1 (0.8-2.0); ALKALINE PHOSPHATASE 53 IU/L (40-150); ANION GAP 14.3 mmol/L (8-16); BLOOD UREA NITROGEN 13 mg/dL (7-26); BUN/CREATININE RATIO 11 (6-25); CALCIUM 8.9 mg/dL (8.4-10.2); CARBON DIOXIDE 24 mmol/L (22-29); CHLORIDE 105 mmol/L (98-107); CREATINE KINASE 855 IU/L (30-200); CREATININE, SERUM 1.18 mg/dL (0.72-1.25); EST GLOMERULAR FILTRATION RATE > 60 ML/MIN (60-); GLUCOSE 108 mg/dL (74-118); POTASSIUM 3.3 mmol/L (3.5-5.1); SODIUM 140 mmol/L (136-145)
[2020-01-01 00:35] LABS: CLARITY,URINE CLEAR (CLEAR); COLOR,URINE YELLOW (YELLOW); KETONES,URINE NEGATIVE (NEGATIVE); LEUKOCYTE ESTERASE ,URINE NEGATIVE (NEGATIVE); NITRITE,URINE NEGATIVE (NEGATIVE); PHENCYCLIDINE SCREEN,URINE NEGATIVE (NEGATIVE); PROTEIN,URINE DIPSTICK NEGATIVE (NEGATIVE)
[2020-01-01 00:37] LABS: AMPHETAMINES SCREEN,URINE NEGATIVE (NEGATIVE); BENZODIAZEPINES SCREEN,URINE NEGATIVE (NEGATIVE)
[2020-01-01 00:38] LABS: BACTERIA,URINE RARE /HPF; BILIRUBIN,URINE NEGATIVE (NEGATIVE); EPITHELIAL CELLS,URINE RARE /LPF; URINE UROBILINOGEN 0.2 mg/dL (0.2 - 1); WBC,URINE (MAN) 0-5 /HPF (0-5)
--- NOTE | 2020-01-01 00:44 | Diagnostic Imaging Report ---
EXAMINATION: CHEST SINGLE (PORTABLE) INDICATION: Chest pain COMPARISON: None FINDINGS: AP view TUBES and LINES: None. LUNGS: Lungs are well inflated. Lungs are clear. There is no evidence of pneumonia or pulmonary edema. PLEURA: No pleural effusion or pneumothorax. HEART AND MEDIASTINUM: The cardiomediastinal silhouette is unremarkable. BONES AND SOFT TISSUES: No acute osseous lesion. Soft tissues are unremarkable. UPPER ABDOMEN: No free air under the diaphragm. IMPRESSION: No acute thoracic radiographic abnormality. Signed by: Troy Chou MD on 01/01/2020 12:41 AM
--- NOTE | 2020-01-01 00:45 | NUR ---
ER MD AT PTS BEDSIDE REVIEWING POC WITH PATIENT; PT DENIES NEED FOR FURTHER TX; MD THOROUGHLY EXPLAINED ILLNESS, LAB RESULTS, REASONS FOR CONT TREATMENT, AND COMPLICATIONS THAT A PATIENT COULD EXPERIENCE WITHOUT FURTHER TREATMENT; PT VERBALIZED UNDERSTANDING AND DENIES NEED FOR FURTHER TREATMENT. PT STATED, "I JUST WANT TO GO HOME AND GO TO SLEEP." WHEN REMOVING 20 GAUGE IV CATH FROM PTS RIGHT AC, PT STATED, "YOU CAN JUST PULL THE TAPE OFF QUICK AND TAKE THE NEEDLE OUT. I'M USED TO NEEDLES, I GIVE MYSELF STEROIDS EVERYDAY FOR THE WRONG REASONS." ER MD AWARE. PTS V/S/S; PT DEPARTED UNIT AAOX3 WITH STEADY GAIT AND NAD NOTED; SIGNIFICANT OTHER WAITING IN PARKING LOT TO DRIVE PATIENT HOME.
--- NOTE | 2020-01-01 02:21 | NUR ---
PT RETURNED TO EMERGENCY DEPARTMENT FOR DISCHARGE PAPERWORK THAT HE (PT) LEFT WHEN DC'D AT 0048
== END 2020-01-01 00:45 | disposition home or self-care (01) ==
LOC: ER 23:35
DX: R07.89 Other chest pain (principal); T79.6XXA Traumatic ischemia of muscle, initial encounter; F17.210 Nicotine dependence, cigarettes, uncomplicated
CPT/HCPCS: 36415; 71045; 80053; 80307; 80320; 81001; 82550; 82553; 84484; 85025; 93005; 99284; J7030